=== PATIENT | female | born 1960 | race Caucasian/White ===

== ENCOUNTER → 2021-05-20 | Outpatient (CLI) | payer BC | LOC: M WHC 14:59 | PROVIDERS: ATTEND Internal Medicine | DX: Z12.31 Encounter for screening mammogram for malignant neoplasm of breast (principal) ==

== ENCOUNTER → 2021-08-16 | Outpatient (REF) | payer BC | LOC: M LAB REF 11:52 | PROVIDERS: ATTEND Internal Medicine | DX: M31.6 Other giant cell arteritis (principal) ==

== ENCOUNTER 2021-09-09 10:52 | Emergency (ER) | payer BC ==
[~2021-09-09] VITALS: Ht 154.9 cm; Wt 72.2 kg
[2021-09-09 11:31] LABS: BASO # 0.1 10^3/uL (0.0-0.2); BASO % 0.7 % (0.0-1.0); EOS # 0.2 10^3/uL (0.0-0.5); EOS % 2.5 % (0.0-3.0); HEMATOCRIT 42.3 % (36.0-47.0); HEMOGLOBIN 14.3 g/dl (12.0-15.5); LYMPH # 1.6 10^3/uL (1.5-5.0); LYMPH % 21.6 % (24.0-44.0); MEAN CORPUSCULAR HEMOGLOBIN 31.1 pg (27.0-33.0); MEAN CORPUSCULAR HGB CONC 33.8 g/dl (32.0-36.5); MONO # 0.7 10^3/uL (0.0-0.8); NEUTROPHILS # 4.8 10^3/uL (1.5-8.5); NEUTROPHILS % 64.9 % (36.0-66.0); PLATELET COUNT, AUTOMATED 386 10^3/uL (150-450); WHITE BLOOD COUNT 7.3 10^3/uL (4.0-10.0)
[2021-09-09] MEDS ORDERED: LORazepam 2 MG/ML VIAL IV STA (11:32)
[2021-09-09 12:04] LABS: ACETAMINOPHEN LEVEL < 2.0 UG/ML (10.0-30.0); ALBUMIN 4.3 GM/DL (3.2-5.2); ALT/SGPT 31 U/L (12-78); BILIRUBIN,DIRECT < 0.1 MG/DL (0.0-0.2); BILIRUBIN,TOTAL 0.3 MG/DL (0.2-1.0); BLOOD UREA NITROGEN 18 MG/DL (7-18); CALCIUM LEVEL 9.6 MG/DL (8.5-10.1); CARBON DIOXIDE LEVEL 26 MEQ/L (21-32); CHLORIDE LEVEL 108 MEQ/L (98-107); CK-MB VALUE MASS 1.9 NG/ML (<3.6); CREATININE FOR GFR 0.91 MG/DL (0.55-1.30); ETHYL ALCOHOL (ETHANOL) < 0.003 % (0.000-0.010); GLOMERULAR FILTRATION RATE > 60.0 (>51); GLUCOSE, FASTING 87 MG/DL (70-100); MB/CK RELATIVE INDEX 1.86 (< OR =4); POTASSIUM SERUM 4.3 MEQ/L (3.5-5.1); SALICYLATE LEVEL < 1.7 MG/DL (5.0-30.0); SODIUM LEVEL 140 MEQ/L (136-145); TOTAL PROTEIN 7.5 GM/DL (6.4-8.2)
[2021-09-09 13:29] VITALS: BP 120/64
== END 2021-09-09 13:39 | disposition home or self-care (01) ==
LOC: M ED 10:52
DX: R56.9 Unspecified convulsions (principal); R00.1 Bradycardia, unspecified; F10.10 Alcohol abuse, uncomplicated
CPT/HCPCS: 80048; 80076; 80143; 82077; 82550; 82553; 83605; 84443; 84484; 85025; 93005; 93041; 94760; 96374; 99284; J2060

== ENCOUNTER → 2021-09-09 | Outpatient (CLI) | payer BC ==
[~2021-09-09] MED LIST: PROHANCE 279.3MG/ML 15ML VIAL As Ordered ONE
== END ==
LOC: M RAD 09:28
PROVIDERS: ATTEND Internal Medicine
DX: R51.9 Headache, unspecified (principal); Z86.73 Personal history of transient ischemic attack (TIA), and cerebral infarction without residual deficits
CPT/HCPCS: 70544; 70553; A9576

== ENCOUNTER → 2021-09-16 | Outpatient (CLI) | payer BC | LOC: M RAD 09:13 | PROVIDERS: ATTEND Internal Medicine | DX: R51.9 Headache, unspecified (principal); Z86.73 Personal history of transient ischemic attack (TIA), and cerebral infarction without residual deficits | CPT/HCPCS: 70549; A9576 ==

== ENCOUNTER → 2022-03-21 | Outpatient (CLI) | payer BC | LOC: M CARPUL 08:34 | PROVIDERS: ATTEND Internal Medicine | DX: R55 Syncope and collapse (principal) ==

== ENCOUNTER → 2022-06-19 | Outpatient (CLI) | payer BC | LOC: M WHC 08:51 | PROVIDERS: ATTEND Internal Medicine | DX: Z12.31 Encounter for screening mammogram for malignant neoplasm of breast (principal) ==

== ENCOUNTER → 2022-06-19 | Outpatient (CLI) | payer BC ==
[2022-06-19 14:23] LABS: BASO # 0.1 10^3/uL (0.0-0.2); BASO % 0.7 % (0.0-1.0); EOS # 0.2 10^3/uL (0.0-0.5); EOS % 2.2 % (0.0-3.0); HEMATOCRIT 38.5 % (36.0-47.0); HEMOGLOBIN 12.8 g/dl (12.0-15.5); LYMPH # 1.5 10^3/uL (1.5-5.0); LYMPH % 22.1 % (24.0-44.0); MEAN CORPUSCULAR HEMOGLOBIN 31.3 pg (27.0-33.0); MEAN CORPUSCULAR HGB CONC 33.2 g/dl (32.0-36.5); MEAN CORPUSCULAR VOLUME 94.1 fl (80.0-96.0); MONO # 0.6 10^3/uL (0.0-0.8); NEUTROPHILS # 4.5 10^3/uL (1.5-8.5); NEUTROPHILS % 65.6 % (36.0-66.0); PLATELET COUNT, AUTOMATED 370 10^3/uL (150-450); RED BLOOD COUNT 4.09 10^6/uL (4.00-5.40); WHITE BLOOD COUNT 6.9 10^3/uL (4.0-10.0)
[2022-06-19 14:49] LABS: ALBUMIN 3.8 G/DL (3.2-5.2); ALKALINE PHOSPHATASE 53 U/L (46-116); ALT/SGPT 18 U/L (7.0-40); AST/SGOT 20 U/L (<34); BILIRUBIN,TOTAL 0.3 MG/DL (0.3-1.2); BLOOD UREA NITROGEN 14 MG/DL (9-23); CALCIUM LEVEL 9.3 MG/DL (8.3-10.6); CARBON DIOXIDE LEVEL 22 MMOL/L (20-31); CHLORIDE LEVEL 108 MMOL/L (98-107); CREATININE FOR GFR 0.88 MG/DL (0.55-1.30); GLOMERULAR FILTRATION RATE > 60.0 (>45); GLUCOSE, FASTING 85 MG/DL (74-106); PHOSPHORUS LEVEL 3.9 MG/DL (2.4-5.1); SODIUM LEVEL 141 MMOL/L (136-145); TOTAL PROTEIN 6.8 G/DL (5.7-8.2); VITAMIN B12 LEVEL 833 PG/ML (211-911)
[2022-06-19 14:50] LABS: FOLATE > 24.00 NG/ML (>5.4)
[2022-06-19 14:53] LABS: TOTAL 25(OH) VITAMIN D 60.5 NG/ML (20.0-100.0)
[2022-06-19 18:56] LABS: ERYTHROCYTE SEDIMENTATION RATE 5 mm/hr (0-30)
[2022-06-23 19:06] LABS: ANTINUCLEAR ANTIBODIES DIRECT Negative (Negative); TOPIRAMATE LEVEL 5.4 ug/mL (2.0-25.0)
== END ==
LOC: M PLALAB 10:37
PROVIDERS: ATTEND Psychiatry & Neurology Neurology
DX: R51.9 Headache, unspecified (principal); R56.9 Unspecified convulsions

== ENCOUNTER 2022-09-29 13:27 | Emergency (ER) | payer BC ==
[~2022-09-29] VITALS: Ht 154.9 cm; Wt 66.0 kg
[2022-09-29] MEDS ORDERED: NS 1,000 ML IV ONE (13:40)
[2022-09-29] MEDS ORDERED: LORazepam 2 MG/ML 1ML VIAL IV PRN (13:55)
[2022-09-29 14:12] LABS: BASO # 0.1 10^3/uL (0.0-0.2); BASO % 0.9 % (0.0-1.0); EOS # 0.2 10^3/uL (0.0-0.5); EOS % 2.8 % (0.0-3.0); HEMATOCRIT 36.3 % (36.0-47.0); HEMOGLOBIN 12.4 g/dl (12.0-15.5); LYMPH # 1.6 10^3/uL (1.5-5.0); LYMPH % 21.3 % (24.0-44.0); MEAN CORPUSCULAR HEMOGLOBIN 31.5 pg (27.0-33.0); MEAN CORPUSCULAR HGB CONC 34.2 g/dl (32.0-36.5); MEAN CORPUSCULAR VOLUME 92.1 fl (80.0-96.0); MONO # 0.8 10^3/uL (0.0-0.8); MONO % 10.6 % (2.0-8.0); NEUTROPHILS # 4.8 10^3/uL (1.5-8.5); NEUTROPHILS % 64.3 % (36.0-66.0); PLATELET COUNT, AUTOMATED 289 10^3/uL (150-450); RED BLOOD COUNT 3.94 10^6/uL (4.00-5.40); WHITE BLOOD COUNT 7.5 10^3/uL (4.0-10.0)
[2022-09-29 15:53] LABS: ALBUMIN 3.9 G/DL (3.2-5.2); ALKALINE PHOSPHATASE 49 U/L (46-116); ALT/SGPT 17 U/L (7.0-40); AST/SGOT 19 U/L (<34); BILIRUBIN,DIRECT < 0.1 MG/DL (<0.4); BILIRUBIN,TOTAL 0.4 MG/DL (0.3-1.2); BLOOD UREA NITROGEN 16 MG/DL (9-23); CALCIUM LEVEL 8.8 MG/DL (8.3-10.6); CARBON DIOXIDE LEVEL 26 MMOL/L (20-31); CHLORIDE LEVEL 107 MMOL/L (98-107); CREATININE FOR GFR 0.83 MG/DL (0.55-1.30); GLOMERULAR FILTRATION RATE > 60.0 (>45); GLUCOSE, FASTING 99 MG/DL (74-106); MAGNESIUM LEVEL 2.1 MG/DL (1.8-2.4); POTASSIUM SERUM 3.6 MMOL/L (3.5-5.1); SODIUM LEVEL 140 MMOL/L (136-145); TOTAL PROTEIN 6.4 G/DL (5.7-8.2)
[2022-09-29 16:39] LABS: PHOSPHORUS LEVEL 2.6 MG/DL (2.4-5.1)
[2022-09-29 18:31] VITALS: BP 129/61
[2022-09-29 19:19] LABS: RSV AMPLIFICATION NEGATIVE (NEGATIVE)
[2022-09-30 16:09] LABS: TOPIRAMATE LEVEL 4.1 ug/mL (2.0-25.0)
== END 2022-09-29 18:47 | disposition home or self-care (01) ==
LOC: M ED 13:27
DX: R56.9 Unspecified convulsions (principal); Z88.0 Allergy status to penicillin

== ENCOUNTER 2023-03-23 08:39 | Day surgery (SDC) | payer OTHER ==
[~2023-03-23] VITALS: Ht 154.9 cm; Wt 66.2 kg
[~2023-03-23 08:39] MED LIST changes: +CHOL12508 PO; +CLA PO; +CLAR10CA3 PO; +DICL50TA2 PO; +ESTR2TAB3 PO; +NS 1,000 ML IV ONE; +OMEP-173 PO; +ONDA-83 PO; -PROHANCE 279.3MG/ML 15ML VIAL As Ordered ONE; +SERT-141 PO; +SUMA100T2 PO; +TOPI1CAP8 PO; +ULTR5TAB PO; +VITMTA PO
[2023-03-23] MEDS ORDERED: propofoL 200 MG/20 ML VIAL As Ordered ONE ×2 (09:22→09:34)
[2023-03-23] MEDS ORDERED: LIDOCAINE 2% 100MG/5ML SDV (FOR ANES.) As Ordered ONE (09:22)
[2023-03-23 09:45] VITALS: TEMP 97.9
[2023-03-23 10:00] VITALS: BP 129/60; O2SAT 98
== END 2023-03-23 10:13 | disposition home or self-care (01) ==
LOC: M OPP 08:39
PROVIDERS: ATTEND Internal Medicine Gastroenterology
DX: Z12.11 Encounter for screening for malignant neoplasm of colon (principal); K64.0 First degree hemorrhoids; R07.9 Chest pain, unspecified; Z86.73 Personal history of transient ischemic attack (TIA), and cerebral infarction without residual deficits; Z86.74 Personal history of sudden cardiac arrest; Z79.890 Hormone replacement therapy; Z79.899 Other long term (current) drug therapy; Z88.0 Allergy status to penicillin; Z88.5 Allergy status to narcotic agent; Z88.8 Allergy status to other drugs, medicaments and biological substances

== ENCOUNTER → 2023-06-22 | Outpatient (CLI) | payer OTHER ==
[~2023-06-22] MED LIST changes: -NS 1,000 ML IV ONE
== END ==
LOC: M WHC 13:48
PROVIDERS: ATTEND Internal Medicine
DX: Z12.31 Encounter for screening mammogram for malignant neoplasm of breast (principal)

== ENCOUNTER → 2024-04-04 | Outpatient (REF) | payer OTHER ==
[2024-04-04 18:25] LABS: APPEARANCE, URINE HAZY (CLEAR); BACTERIA, URINE AUTO NEGATIVE (NEGATIVE); BILIRUBIN, URINE AUTO NEGATIVE (NEGATIVE); BLOOD, URINE BLOOD NEGATIVE (NEGATIVE); COLOR, URINE AMBER (YELLOW); GLUCOSE, URINE (UA) AUTO NEGATIVE (NEGATIVE); KETONE, URINE AUTO NEGATIVE (NEGATIVE); LEUKOCYTE ESTERASE, URINE AUTO NEGATIVE (NEGATIVE); NITRITE, URINE AUTO NEGATIVE (NEGATIVE); PROTEIN, URINE AUTO NEGATIVE (NEGATIVE); RBC, URINE AUTO 0 /HPF (0-3); SPECIFIC GRAVITY URINE AUTO 1.008 (1.002-1.035); SQUAMOUS EPITHELIAL CELL UR AU 1 /HPF (0-6); UROBILINOGEN, URINE AUTO 0.2 mg/dL (0.0-2.0); WBC, URINE AUTO 0 /HPF (0-3)
== END ==
LOC: M PLALAB 16:14
PROVIDERS: ATTEND Obstetrics & Gynecology
DX: Z12.72 Encounter for screening for malignant neoplasm of vagina (principal); R87.5 Abnormal microbiological findings in specimens from female genital organs; R31.0 Gross hematuria

== ENCOUNTER → 2024-04-13 | Outpatient (CLI) | payer OTHER ==
[2024-04-13 16:52] LABS: HEMOGLOBIN A1c 5.2 % (4.0-6.0)
[2024-04-13 17:44] LABS: BLOOD UREA NITROGEN 20 MG/DL (9-23); CALCIUM LEVEL 9.5 MG/DL (8.3-10.6); CARBON DIOXIDE LEVEL 26 MMOL/L (20-31); CHLORIDE LEVEL 106 MMOL/L (98-107); CREATININE FOR GFR 0.86 MG/DL (0.55-1.30); GLOMERULAR FILTRATION RATE > 60.0 (>45); GLUCOSE, FASTING 92 MG/DL (74-106); POTASSIUM SERUM 3.8 MMOL/L (3.5-5.1); SODIUM LEVEL 140 MMOL/L (136-145)
== END ==
LOC: M WUC 14:15
PROVIDERS: ATTEND Ophthalmology
DX: H44.23 Degenerative myopia, bilateral (principal)

== ENCOUNTER → 2024-06-21 | Outpatient (REF) | payer OTHER ==
[2024-06-21 18:37] LABS: IRON (FE) 101 UG/DL (50-170); PERCENT SATURATION 38.1 % (13.2-45.0); TOTAL IRON BINDING CAPACITY 265 UG/DL (250-425)
[2024-06-21 18:39] LABS: FERRITIN 87.9 NG/ML (7.3-270.7)
[2024-06-21 18:42] LABS: VITAMIN B12 LEVEL > 2000 PG/ML (211-911)
== END ==
LOC: M LAB REF 16:45
PROVIDERS: ATTEND Internal Medicine
DX: D64.9 Anemia, unspecified (principal)

== ENCOUNTER → 2024-06-24 | Outpatient (CLI) | payer OTHER | LOC: M WHC 11:59 | PROVIDERS: ATTEND Internal Medicine | DX: Z12.31 Encounter for screening mammogram for malignant neoplasm of breast (principal); R92.333 Mammographic heterogeneous density, bilateral breasts ==

== ENCOUNTER 2024-07-07 11:34 | Emergency (ER) | payer OTHER ==
[~2024-07-07] VITALS: Ht 162.6 cm; Wt 73.5 kg
[~2024-07-07 11:34] MED LIST changes: -ATIV1TAB10; -BIMA01SOL; -DIVA500T9; -ESTR1TAB; -FEZO45TA; -RIME75TA; -SIMV10TA21; -TOPI100T9
[2024-07-07] MEDS ORDERED: FEZO45TA (12:00)
[2024-07-07] MEDS ORDERED: SIMV10TA21 (12:00)
[2024-07-07] MEDS ORDERED: RIME75TA (12:00)
[2024-07-07] MEDS ORDERED: ATIV1TAB10 (12:00)
[2024-07-07] MEDS ORDERED: BIMA01SOL (12:00)
[2024-07-07] MEDS ORDERED: DIVA500T9 (12:00)
[2024-07-07] MEDS ORDERED: ESTR1TAB (12:00)
[2024-07-07] MEDS ORDERED: TOPI100T9 (12:00)
[2024-07-07 12:07] LABS: BASO # 0.1 10^3/uL (0.0-0.2); BASO % 0.7 % (0.0-1.0); EOS # 0.3 10^3/uL (0.0-0.5); EOS % 4.2 % (0.0-3.0); HEMATOCRIT 38.6 % (36.0-47.0); HEMOGLOBIN 13.1 g/dl (12.0-15.5); LYMPH # 2.1 10^3/uL (1.5-5.0); LYMPH % 28.8 % (24.0-44.0); MEAN CORPUSCULAR HEMOGLOBIN 31.7 pg (27.0-33.0); MEAN CORPUSCULAR HGB CONC 33.9 g/dl (32.0-36.5); MEAN CORPUSCULAR VOLUME 93.5 fl (80.0-96.0); MONO # 0.9 10^3/uL (0.0-0.8); MONO % 12.7 % (2.0-8.0); NEUTROPHILS # 3.8 10^3/uL (1.5-8.5); NEUTROPHILS % 53.3 % (36.0-66.0); PLATELET COUNT, AUTOMATED 276 10^3/uL (150-450); RED BLOOD COUNT 4.13 10^6/uL (4.00-5.40); WHITE BLOOD COUNT 7.1 10^3/uL (4.0-10.0)
[2024-07-07 12:39] LABS: VALPROIC ACID (DEPAKOTE) 27.2 UG/ML (50.0-100.0)
[2024-07-07 12:41] LABS: BLOOD UREA NITROGEN 15 MG/DL (9-23); CALCIUM LEVEL 9.4 MG/DL (8.3-10.6); CARBON DIOXIDE LEVEL 24 MMOL/L (20-31); CHLORIDE LEVEL 106 MMOL/L (98-107); CREATININE FOR GFR 0.75 MG/DL (0.55-1.30); GLOMERULAR FILTRATION RATE > 60.0 (>45); GLUCOSE, FASTING 91 MG/DL (74-106); POTASSIUM SERUM 4.6 MMOL/L (3.5-5.1); SODIUM LEVEL 141 MMOL/L (136-145)
[2024-07-07] MEDS: DIVALPROEX 500MG *ER* TAB PO ONE (13:40)
[2024-07-07 13:52] VITALS: BP 121/65; TEMP 98.3; O2SAT 96
== END 2024-07-07 14:08 | disposition home or self-care (01) ==
LOC: M ED 11:34 → EDBD 11:34 → M ED 14:08
DX: R56.9 Unspecified convulsions (principal); Z88.0 Allergy status to penicillin; Z88.5 Allergy status to narcotic agent; Z88.8 Allergy status to other drugs, medicaments and biological substances; I25.10 Atherosclerotic heart disease of native coronary artery without angina pectoris; I25.2 Old myocardial infarction; Z86.73 Personal history of transient ischemic attack (TIA), and cerebral infarction without residual deficits; Z79.899 Other long term (current) drug therapy

== ENCOUNTER → 2024-07-07 | Outpatient (CLI) | payer OTHER ==
[~2024-07-07] MED LIST changes: +ATIV1TAB10; +BIMA01SOL; +DIVA500T9; +ESTR1TAB; +FEZO45TA; +RIME75TA; +SIMV10TA21; +TOPI100T9
== END ==
LOC: M PLAIMG 09:36
PROVIDERS: ATTEND Internal Medicine
DX: G43.119 Migraine with aura, intractable, without status migrainosus (principal)

== ENCOUNTER → 2024-08-30 | Outpatient (CLI) | payer OTHER ==
[~2024-08-30] MED LIST changes: +ATIV1TAB10; +BIMA01SOL; +DIVA500T9; +ESTR1TAB; +FEZO45TA; +RIME75TA; +SIMV10TA21; +TOPI100T9
== END ==
LOC: M RAD 08:44
PROVIDERS: ATTEND Internal Medicine
DX: D37.6 Neoplasm of uncertain behavior of liver, gallbladder and bile ducts (principal); Z90.49 Acquired absence of other specified parts of digestive tract

== ENCOUNTER 2024-10-20 09:52 | Day surgery (SDC) | payer OTHER ==
[~2024-10-20] VITALS: Ht 154.9 cm; Wt 74.8 kg
[2024-10-20] MEDS: BSS IRRIG/VANCO(10MG)/TOBRA(5MG)/EPINEPH(1:1000-0.5CC)500ML BAG-ORONLY As Ordered ONE (07:14)
[~2024-10-20 09:52] MED LIST changes: +BIMA01SOL OU; +DIVA500T94 PO; +ESTR1TAB PO; +FEZO45TA PO; +MIDAZOLAM INJ 2MG/2ML VIAL As Ordered ONE; +PHENYLEPHRINE 10% OPHTH SOL 5ML OS PRN; +RIME75TA PO; +SIMV10TA21 PO; +THERTAB52 PO; +TOPI-257; -TOPI100T9; +VITA100093 PO; +fentaNYL 100 MCG/2 ML INJECTION As Ordered ONE
[2024-10-20] MEDS: OFLOXACIN 0.3 % (OCUFLOX) OPTH SOL 5ML OS ONE (10:30)
[2024-10-20] MEDS: CYCLOPENTOLATE 1% OPHTH SOLN 2ML BTL OS SCH (10:43)
[2024-10-20] MEDS: PHENYLEPHRINE 2.5% OPHTH SOL 2ML OS SCH (10:43)
[2024-10-20] MEDS: TROPICAMIDE 1% OPHTH SOLN 15ML OS SCH (10:43)
[2024-10-20] MEDS: LIDOCAINE 3.5 % 1ML OPHTH TOPICAL GEL OU ONE (10:43)
[2024-10-20] MEDS: LIDOCAINE 1% SDV 5ML VIAL As Ordered ONE (11:18)
[2024-10-20] MEDS ORDERED: PROVISC 10 MG/ML 0.85ML SYRINGE As Ordered ONE (11:21)
[2024-10-20] MEDS ORDERED: propofoL 200 MG/20 ML VIAL As Ordered ONE (11:29)
[2024-10-20 11:34] VITALS: BP 140/66; TEMP 97.1; O2SAT 96
[2024-10-25] MEDS ORDERED: REST0.05 (07:33)
== END 2024-10-20 12:01 | disposition home or self-care (01) ==
LOC: M SDC 09:52
PROVIDERS: ATTEND Ophthalmology
DX: H40.1121 Primary open-angle glaucoma, left eye, mild stage (principal); H25.12 Age-related nuclear cataract, left eye; I25.10 Atherosclerotic heart disease of native coronary artery without angina pectoris; R56.9 Unspecified convulsions; I25.2 Old myocardial infarction; K21.9 Gastro-esophageal reflux disease without esophagitis; Z79.899 Other long term (current) drug therapy; Z98.61 Coronary angioplasty status; G43.909 Migraine, unspecified, not intractable, without status migrainosus; Z86.73 Personal history of transient ischemic attack (TIA), and cerebral infarction without residual deficits; Z85.820 Personal history of malignant melanoma of skin; Z92.21 Personal history of antineoplastic chemotherapy; Z88.8 Allergy status to other drugs, medicaments and biological substances; F43.10 Post-traumatic stress disorder, unspecified; Z88.0 Allergy status to penicillin; Z88.5 Allergy status to narcotic agent; Z90.710 Acquired absence of both cervix and uterus
CPT/HCPCS: 66991; J2250; J3010; V2632

== ENCOUNTER 2024-10-27 07:59 | Day surgery (SDC) | payer OTHER ==
[~2024-10-27] VITALS: Ht 154.9 cm; Wt 74.8 kg
[2024-10-27] MEDS: CEFUROXIME 1MG/0.1ML INTRACAMERAL INJ As Ordered ONE (06:40)
[~2024-10-27 07:59] MED LIST changes: +PHENYLEPHRINE 10% OPHTH SOL 5ML OD PRN; -PHENYLEPHRINE 10% OPHTH SOL 5ML OS PRN; +REST0.05
[2024-10-27] MEDS: LIDOCAINE 3.5 % 1ML OPHTH TOPICAL GEL OU ONE (09:05)
[2024-10-27] MEDS: OFLOXACIN 0.3 % (OCUFLOX) OPTH SOL 5ML OD ONE (09:05)
[2024-10-27] MEDS: PHENYLEPHRINE 2.5% OPHTH SOL 2ML OD SCH (09:06)
[2024-10-27] MEDS: TROPICAMIDE 1% OPHTH SOLN 15ML OD SCH (09:06)
[2024-10-27] MEDS: CYCLOPENTOLATE 1% OPHTH SOLN 2ML BTL OD SCH (09:06)
[2024-10-27] MEDS ORDERED: ONDANSETRON 4MG 2ML VIAL As Ordered ONE (09:49)
[2024-10-27] MEDS: LIDOCAINE 1% SDV 5ML VIAL As Ordered ONE (09:57)
[2024-10-27] MEDS: BSS IRRIG/VANCO(10MG)/TOBRA(5MG)/EPINEPH(1:1000-0.5CC)500ML BAG-ORONLY As Ordered ONE (09:57)
[2024-10-27 10:12] VITALS: BP 132/63; TEMP 97.2; O2SAT 96
== END 2024-10-27 10:25 | disposition home or self-care (01) ==
LOC: M SDC 07:59
PROVIDERS: ATTEND Ophthalmology
DX: H25.11 Age-related nuclear cataract, right eye (principal); H40.811 Glaucoma with increased episcleral venous pressure, right eye; I25.10 Atherosclerotic heart disease of native coronary artery without angina pectoris; I25.2 Old myocardial infarction; K21.9 Gastro-esophageal reflux disease without esophagitis; F43.10 Post-traumatic stress disorder, unspecified; G43.909 Migraine, unspecified, not intractable, without status migrainosus; Z86.73 Personal history of transient ischemic attack (TIA), and cerebral infarction without residual deficits; Z92.21 Personal history of antineoplastic chemotherapy; G40.909 Epilepsy, unspecified, not intractable, without status epilepticus; Z79.899 Other long term (current) drug therapy; Z88.0 Allergy status to penicillin; Z88.5 Allergy status to narcotic agent; Z88.8 Allergy status to other drugs, medicaments and biological substances
CPT/HCPCS: 66988; J0697; J2250; J2405; J3010; V2632

== ENCOUNTER 2025-04-16 18:09 | Emergency (ER) | payer MEDICARE, OTHER ==
[~2025-04-16 18:09] MED LIST changes: -CHOL12508 PO; +DIVA-41 PO; -DIVA500T94 PO; -MIDAZOLAM INJ 2MG/2ML VIAL As Ordered ONE; -PHENYLEPHRINE 10% OPHTH SOL 5ML OD PRN; +[UNRECOGNIZED DRUG - CODE] PO; -fentaNYL 100 MCG/2 ML INJECTION As Ordered ONE
[2025-04-16] MEDS ORDERED: ISOVUE-370 76% 100 ML VIAL As Ordered ONE (18:23)
[2025-04-16 18:34] LABS: BASO # 0.1 10^3/uL (0.0-0.2); BASO % 1.0 % (0.0-1.0); EOS # 0.2 10^3/uL (0.0-0.5); EOS % 3.8 % (0.0-3.0); LYMPH # 1.7 10^3/uL (1.5-5.0); LYMPH % 26.9 % (24.0-44.0); MONO # 0.8 10^3/uL (0.0-0.8); MONO % 12.7 % (2.0-8.0); NEUTROPHILS # 3.5 10^3/uL (1.5-8.5); NEUTROPHILS % 55.4 % (36.0-66.0); PLATELET COUNT, AUTOMATED 221 10^3/uL (150-450)
[2025-04-16 18:50] LABS: INR 0.92
[2025-04-16 19:01] LABS: ALT/SGPT 27.0 U/L (7.0-40); AST/SGOT 28.0 U/L (<34)
[2025-04-16 19:03] LABS: FREE T4 1.1 NG/DL (0.89-1.76)
[2025-04-16] MEDS: KETOROLAC 30 MG/ML 1 ML VIAL IV ONE (20:17)
[2025-04-16] MEDS: NS 500 ML IV ONE (20:17)
[2025-04-16] MEDS: diphenhydrAMINE 50 MG/ML VIAL IV ONE (20:17)
[2025-04-16 22:12] VITALS: TEMP 96.9
[2025-04-16 23:45] VITALS: BP 130/70; O2SAT 97
== END 2025-04-17 00:14 | disposition left against medical advice (07) ==
LOC: M ED 18:09 → CANBEDREQ 23:47 → M ED 04-17 00:14
DX: R41.82 Altered mental status, unspecified (principal); G81.94 Hemiplegia, unspecified affecting left nondominant side; G40.909 Epilepsy, unspecified, not intractable, without status epilepticus; I25.2 Old myocardial infarction; G95.89 Other specified diseases of spinal cord; M25.78 Osteophyte, vertebrae; M50.30 Other cervical disc degeneration, unspecified cervical region; M48.02 Spinal stenosis, cervical region; Z86.79 Personal history of other diseases of the circulatory system; Z88.0 Allergy status to penicillin; Z88.5 Allergy status to narcotic agent; Z88.8 Allergy status to other drugs, medicaments and biological substances; Z79.899 Other long term (current) drug therapy; Z53.9 Procedure and treatment not carried out, unspecified reason
CPT/HCPCS: 70450; 70496; 70498; 70551; 71045; 72125; 80047; 80076; 80164; 82140; 83605; 84439; 84443; 85025; 85610; 85730; 93005; 93041; 94760; 96361; 96374; 96375; 99285; J1200; J1885; J2765; Q9967